=== PATIENT | male | born 1990 | race African-American/Black ===

== ENCOUNTER 2017-04-21 09:31 | Emergency (ER) | payer SELFPAY ==
[2017-04-21 09:37] VITALS: BP 131/68
--- NOTE | 2017-04-21 12:01 | ER Document Report ---
ED ENT - General Chief Complaint: Ear Pain Stated Complaint: RIGHT EAR CONCERN Time Seen by Provider: 04/21/17 10:29 Notes: Is a 27-year-old male who presents emergency department complaining of right ear pain since Friday. Patient states that it is a sharp pain localized to the right ear with decreased hearing in the right ear. He denies any headaches , visual acuity changes, sinus pressure, nasal drainage, sore throat, cough, fever, chills. h/o OM TRAVEL OUTSIDE OF THE [place] IN LAST 30 DAYS: No - Related Data Allergies/Adverse Reactions: aspirin Allergy (Verified 04/21/17 09:35) Past Medical History - Social History Smoking Status: Never Smoker Chew tobacco use (# tins/day): No Frequency of alcohol use: None Drug Abuse: None Family History: Reviewed & Not Pertinent Patient has suicidal ideation: No Patient has homicidal ideation: No Renal/ Medical History: Denies: Hx Peritoneal Dialysis Surgical Hx: Negative - Immunizations Hx Diphtheria, Pertussis, Tetanus Vaccination: Yes Review of Systems - Review of Systems Constitutional: No symptoms reported EENT: See HPI, Ear pain. denies: Ear discharge Cardiovascular: No symptoms reported Respiratory: No symptoms reported -: Yes All other systems reviewed and negative Physical Exam - Vital signs Vitals: Temp Pulse Resp BP Pulse Ox 97.8 F 51 L 16 131/68 H 100 04/21/17 09:36 04/21/17 09:36 04/21/17 09:36 04/21/17 09:36 04/21/17 09:36 - HEENT Head: Normocephalic, Atraumatic Eyes: Normal Conjunctiva: Normal Extraocular movements intact: Yes Eyelashes: Normal Pupils: PERRL Ears: Normal External canal: Cerumen impaction Tympanic membrane: Serous effusion - right, after ears irrigated Sinus: Normal. No: Swelling, Tenderness Nasal: Normal. No: Purulent discharge, Swelling, Clear rhinorrhea Mouth/Lips: Normal. No: Dental fracture Mucous membranes: Normal Pharynx: Normal. No: Peritonsillar abscess, Retropharyngeal abscess, Potential airway comprom. Neck: Normal - Respiratory Respiratory status: No respiratory distress Chest status: Nontender Breath sounds: Normal Chest palpation: Normal - Cardiovascular Rhythm: Regular Heart sounds: Normal auscultation Pulses: Normal: Radial Normal capillary refill: Yes - Skin Skin Temperature: Warm Skin Moisture: Dry Skin Color: Normal Skin Turgor: Elastic Course - Re-evaluation Re-evalutation: 04/21/17 11:58 Patient is a 27-year-old male presents with right ear pain as a sharp pain. Patient states this is consistent with his previous ear infections in the past. After ears were irrigated and removal of cerumen, bilateral TMs were evaluated. Evidence of otitis media of the right ear. Discharge home on p.o. antibiotics and follow-up with primary care - Vital Signs Vital signs: Temp Pulse Resp BP Pulse Ox 97.8 F 51 L 16 131/68 H 100 04/21/17 09:36 04/21/17 09:36 04/21/17 09:36 04/21/17 09:36 04/21/17 09:36 Discharge - Discharge Clinical Impression: Otitis media Condition: Good Disposition: HOME, SELF-CARE Instructions: Serous Otitis Media ([facility]) Prescriptions: Amoxicillin Trihydrate [Amoxil 875 mg Tablet] 1 tab PO BID 7 Days Forms: Return to Work Referrals: [facility] [NO LOCAL MD] - Follow up as needed [facility] [Provider Group] - Follow up as needed
== END 2017-04-21 12:46 | disposition home or self-care (01) ==
LOC: ER 09:31
DX: H66.90 Otitis media, unspecified, unspecified ear (principal); H92.01 Otalgia, right ear; Z88.6 Allergy status to analgesic agent
CPT/HCPCS: 99282

== ENCOUNTER 2018-06-06 18:13 | Emergency (ER) | payer SELFPAY ==
[2018-06-06 18:21] VITALS: BP 120/63
--- NOTE | 2018-06-06 19:06 | ER Document Report ---
ED General - General Chief Complaint: Finger Injury Stated Complaint: FINGER INJURY Time Seen by Provider: 06/06/18 19:06 Mode of Arrival: Ambulatory Information source: Patient TRAVEL OUTSIDE OF THE [place] IN LAST 30 DAYS: No - HPI Notes: Patient is a 28-year-old male presents to the emergency department with report that yesterday he caught his hand in a door and injured his right third and fourth fingers with mild bleeding. Patient's tetanus is up-to-date. He denies any other musculoskeletal complaint or injury. He reports no numbness or paresthesia. He denies any wrist pain or redness or swelling or fever or chills. No concern for foreign body. - Related Data Allergies/Adverse Reactions: aspirin Allergy (Verified 06/06/18 18:14) Past Medical History - General Information source: Patient - Social History Smoking Status: Never Smoker Frequency of alcohol use: None Drug Abuse: None Lives with: Friend Family History: Reviewed & Not Pertinent Renal/ Medical History: Denies: Hx Peritoneal Dialysis - Immunizations Hx Diphtheria, Pertussis, Tetanus Vaccination: Yes Review of Systems - Review of Systems -: Yes All other systems reviewed and negative Physical Exam - Vital signs Vitals: Temp Pulse Resp BP Pulse Ox 98.4 F 60 16 120/63 100 06/06/18 18:19 06/06/18 18:19 06/06/18 18:19 06/06/18 18:19 06/06/18 18:19 - Notes Notes: Physical exam is nonfocal with exception of the right upper extremity with the patient has pain and mild swelling with old lacerations from yesterday to the right third and fourth fingers. No nailbed injury. The patient has adequate flexion and extension. There is good distal capillary refill. There is no evidence for infection or foreign body. The lacerations are very superficial and there is no exposed bone or tendon or nerve. No proximal erythema or adenopathy noted. Rest of hand and wrist are nontender. Course - Re-evaluation Re-evalutation: X-ray as interpreted by me showed no evidence for acute fracture. Wound areas were cleaned and antibiotic ointment and a splint was applied. 06/06/18 20:07 06/06/18 20:09 No evidence for fracture or neurovascular compromise or other acute injury. - Vital Signs Vital signs: Temp Pulse Resp BP Pulse Ox 98.4 F 60 16 120/63 100 06/06/18 18:19 06/06/18 18:19 06/06/18 18:19 06/06/18 18:19 06/06/18 18:19 Discharge - Discharge Clinical Impression: Finger laceration Qualifiers: Encounter type: initial encounter Finger: index finger Damage to nail status: without damage Foreign body presence: without foreign body Laterality: right Qualified Code(s): S61.210A - Laceration without foreign body of right index finger without damage to nail, initial encounter Finger sprain Qualifiers: Encounter type: initial encounter Finger: middle finger Sprain of finger site: interphalangeal joint Laterality: right Qualified Code(s): S63.632A - Sprain of interphalangeal joint of right middle finger, initial encounter Condition: Stable Disposition: HOME, SELF-CARE Instructions: Antibiotic Ointment Protection ([facility]), Laceration Care ([facility]), Prophylactic Antibiotic ([facility]) Additional Instructions: Keep wound clean and dry. Return to the emergency department in case of fever or significant swelling or redness. Apply antibiotic ointment to the wound regularly. Prescriptions: Ibuprofen [Ibu] 800 mg PO Q8HP PRN #30 tablet PRN Reason: Cephalexin Monohydrate [Keflex 500 mg Capsule] 500 mg PO Q6H 7 Days capsule Forms: Return to Work
[2018-06-06] MEDS ORDERED: IBUPROFEN 800 MG TABLET PO ONE (19:18)
--- NOTE | 2018-06-06 20:15 | RADIOLOGY REPORT (SQ) ---
EXAM DESCRIPTION: HAND RIGHT 2 VIEWS COMPLETED DATE/TIME: 06/06/2018 7:17 pm REASON FOR STUDY: finger injury . Slammed 3rd and 4th digits in the car door yesterday morning. COMPARISON: None. EXAM PARAMETERS: NUMBER OF VIEWS: Three views. TECHNIQUE: AP, lateral and oblique radiographic images acquired of the right hand. LIMITATIONS: None. FINDINGS: MINERALIZATION: Normal. BONES: There is a small vertical linear lucency at the radial side at the tuft of the 3rd distal phal anx, may represent a nondisplaced fracture. SOFT TISSUES: No significant soft tissue swelling. No radiopaque foreign body. IMPRESSION: Small linear lucency at the tuft of the 3rd distal phalanx, may represent a nondisplaced fracture. TECHNICAL DOCUMENTATION: JOB ID: [id number] [employer]- All Rights Reserved Reading location - IP/workstation name: [email or web address]
== END 2018-06-06 20:25 | disposition home or self-care (01) ==
LOC: ER 18:13
DX: S61.210A Laceration without foreign body of right index finger without damage to nail, initial encounter (principal); S61.212A Laceration without foreign body of right middle finger without damage to nail, initial encounter; S63.632A Sprain of interphalangeal joint of right middle finger, initial encounter; W23.0XXA Caught, crushed, jammed, or pinched between moving objects, initial encounter; Z88.6 Allergy status to analgesic agent
CPT/HCPCS: 99283

== ENCOUNTER 2018-06-22 18:29 | Emergency (ER) | payer SELFPAY ==
[2018-06-22 19:13] VITALS: BP 124/68
--- NOTE | 2018-06-22 19:13 | ER Document Report ---
HPI - HPI Patient complains to provider of: Dysuria and penile discharge Onset: Yesterday Onset/Duration: Persistent Pain Level: 4 Context: 28-year-old male that had intercourse with a female without a condom yesterday he has penile discharge and dysuria. No scrotal swelling or testicular pain or swelling. He is circumcised. No pelvic pain. Patient denies any penile lesions or rash to the scrotum. Associated Symptoms: None Exacerbated by: Other - Urination Relieved by: Denies - ROS ROS below otherwise negative: Yes Systems Reviewed and Negative: Yes All other systems reviewed and negative Past Medical History - General Information source: Patient - Social History Smoking Status: Current Every Day Smoker Lives with: Family Family History: Reviewed & Not Pertinent - Medical History Medical History: Negative Pulmonary Medical History: Reports: Hx Asthma Renal/ Medical History: Denies: Hx Peritoneal Dialysis Surgical Hx: Negative - Immunizations Hx Diphtheria, Pertussis, Tetanus Vaccination: Yes Vertical Provider Document - CONSTITUTIONAL Agree With Documented VS: Yes - INFECTION CONTROL TRAVEL OUTSIDE OF THE [place] IN LAST 30 DAYS: No - GI/ABDOMEN Gastrointestinal: Abdomen Soft, Abdomen Non-Tender - NEURO Level of Consciousness: Awake - DERM Integumentary: No Rash Course - Vital Signs Vital signs: Temp Pulse Resp BP Pulse Ox 98.4 F 58 L 20 124/68 100 06/22/18 19:07 06/22/18 19:07 06/22/18 19:07 06/22/18 19:07 06/22/18 19:07 Discharge - Discharge Clinical Impression: Dysuria, Urethral discharge Condition: Good Disposition: HOME, SELF-CARE Instructions: Rocephin ([facility]), Azithromycin ([facility]), Gonorrhea ([facility]), Chlamydia ( [facility]), Urethritis ([facility]) Additional Instructions: Call back in 3 hours for the STD culture results and ask for Justine. [phone] If the cultures are positive the female partner will need to be treated Return to the emergency room any concerns Did not have intercourse for 2 weeks
[2018-06-22] MEDS ORDERED: AZITHROMYCIN 250 MG TABLET PO ONE (19:22)
[2018-06-22] MEDS ORDERED: CEFTRIAXONE INJ 250 MG VIAL IM ONE (19:22)
[2018-06-22 21:11] LABS: CHLAM PCR DETECTED (NOT DETECT); GON PCR NOT DETECTED (NOT DETECT)
== END 2018-06-22 20:00 | disposition home or self-care (01) ==
LOC: ER 18:29
DX: R30.0 Dysuria (principal); R36.9 Urethral discharge, unspecified; F17.200 Nicotine dependence, unspecified, uncomplicated
CPT/HCPCS: 99283; 96372; 87491; 87591; J0696

== ENCOUNTER 2018-10-04 16:00 | Emergency (ER) | payer SELFPAY ==
[2018-10-04 16:07] VITALS: BP 136/70
[2018-10-04] MEDS ORDERED: METHYLPREDNISOLONE INJ 125 MG/2 ML SDV IM ONE (17:07)
[2018-10-04] MEDS ORDERED: IPRATROPIUM/ALBUTEROL 0.5-2.5 MG/3 ML AMPUL NEB ONE (17:07)
--- NOTE | 2018-10-04 17:15 | ER Document Report ---
HPI - HPI Pain Level: 3 Notes: Patient is a 28-year-old male with a history of asthma who presents to the ED complaining of an acute asthma exacerbation that started this afternoon. Patient states that he has been having nasal congestion and discharge as well as a dry nonproductive cough over the last 3-4 days. Patient states he does not have any inhalers at home, but has not used inhalers in the past. Pt states that this is not a severe asthma exacerbation. He is eating and drinking without difficulty. He is urinating normally and having normal bowel movements. No other concerns or complaints. He has never needed to be intubated or admitted for asthma in the past. Denies any headache, fever, neck pain, sore throat, chest pain, palpitations, syncope, shortness of breath, wheeze, dyspnea, abdominal pain, nausea/vomiting/diarrhea, urinary retention, dysuria, hematuria, or rash. Denies any prolonged immobilization, distance travel, recent surgery/trauma, personal cancer history, hormone use, smoking, or previous DVT/PE. - ROS Systems Reviewed and Negative: Yes All other systems reviewed and negative Past Medical History - Social History Smoking Status: Never Smoker Family History: Reviewed & Not Pertinent Pulmonary Medical History: Reports: Hx Asthma Renal/ Medical History: Denies: Hx Peritoneal Dialysis - Immunizations Hx Diphtheria, Pertussis, Tetanus Vaccination: Yes Vertical Provider Document - CONSTITUTIONAL Agree With Documented VS: Yes Notes: PHYSICAL EXAMINATION: GENERAL: Well-appearing, well-nourished and in no acute distress. A&Ox4. Answers questions appropriately. HEAD: Atraumatic, normocephalic. EYES: Pupils equal round and reactive to light, extraocular movements intact, sclera anicteric, conjunctiva are normal. ENT: Nares patent and without discharge. oropharynx clear without exudates. No tonsilar hypertrophy or erythema. Moist mucous membranes. NECK: Normal range of motion, supple without lymphadenopathy LUNGS: Scant wheezing b/l. No rales. HEART: Regular rate and rhythm without murmurs, rubs, gallops. ABDOMEN: Soft, nontender, nondistended abdomen. No guarding, no rebound. No masses appreciated. Normal bowel sounds present. No CVA tenderness bilaterally. Musculoskeletal: FROM to passive/active. Strength 5+/5. Shyann neg. No asymmetry to LE's. Extremities: No cyanosis, clubbing, or edema b/l. Peripheral pulses 2+. Capillary refill less than 3 seconds. NEUROLOGICAL: Normal speech, normal gait. PSYCH: Normal mood, normal affect. SKIN: Warm, Dry, normal turgor, no rashes or lesions noted. - INFECTION CONTROL TRAVEL OUTSIDE OF THE [place] IN LAST 30 DAYS: No Course - Re-evaluation Re-evalutation: 10/04/18 18:26 Patient is an afebrile, well-hydrated, 28-year-old male who presents to the ED with an acute asthma exacerbation, mild. Vitals are acceptable without any significant tachycardia, tachypnea, or hypoxia. PE is otherwise unremarkable. Patient is nontoxic-appearing and is tolerating p.o. without any difficulties. Pt was given solumedrol and duoneb. CXR negative. Pt has had resolution of symptoms and lungs are now clear b/l. PERC negative with low risk factors. Patient does not have any chest pain, dyspnea, or shortness of breath. Patient' s presentation and symptomatology creates low suspicion for ACS, PE, pneumothorax, pericarditis, dissection, respiratory compromise, severe dehydration, sepsis, meningitis, or other systemic emergent condition at this time. Patient is aware that his condition can change from initial presentation and he needs to monitor symptoms closely and seek medical attention for any acute changes. Pt is feeling better and would like to go home. Rx for albuterol and steroid taper. Recommend conservative measures for symptoms. Recheck with your PCM in 3-5 days. Return to the ED with any worsening/ concerning symptoms otherwise as reviewed in discharge. Patient is in agreement. - Vital Signs Vital signs: Temp Pulse Resp BP Pulse Ox 98.4 F 97 16 136/70 H 95 10/04/18 16:06 10/04/18 16:06 10/04/18 16:06 10/04/18 16:06 10/04/18 16:06 Discharge - Discharge Clinical Impression: Acute asthma flare Qualifiers: Asthma severity: mild Asthma persistence: intermittent Qualified Code(s): J45.21 - Mild intermittent asthma with (acute) exacerbation Condition: Stable Disposition: HOME, SELF-CARE Instructions: Asthma ([facility]) Additional Instructions: Maintain adequate fluid intake Take meds/use inhaler as directed tylenol/ibuprofen as needed over the counter cold medication as needed for symptoms Humidified air may help Wash your hands regularly Wear a mask when coughing F/u: with your PCM in 3-5 days for a recheck Return to the ED with any fever, worsening pain, chest pain, palpitations, syncope, worsening APARICIO, neck pain/stiffness, shortness of breath, wheezing, drooling, trouble swallowing/breathing, abdominal pain, n/v/d, rash, or worsening/concerning symptoms otherwise. Prescriptions: Albuterol Sulfate [Proair HFA Inhalation Aerosol 8.5 gm MDI] 2 puff IH Q4H PRN # 1 mdi PRN Reason: Prednisone [Deltasone 10 mg Tablet] 10 mg PO DAILY #18 tablet Forms: Elevated Blood Pressure, Return to Work Referrals: PEEWEE VASQUEZ MD [ACTIVE STAFF] - Follow up as needed
--- NOTE | 2018-10-04 17:43 | RADIOLOGY REPORT (SQ) ---
EXAM DESCRIPTION: CHEST 2 VIEWS COMPLETED DATE/TIME: 10/04/2018 5:36 pm REASON FOR STUDY: cough COMPARISON: None. EXAM PARAMETERS: NUMBER OF VIEWS: two views TECHNIQUE: Digital Frontal and Lateral radiographic views of the chest acquired. RADIATION DOSE: NA LIMITATIONS: none FINDINGS: LUNGS AND PLEURA: No opacities, masses or pneumothorax. No pleural effusion. MEDIASTINUM AND HILAR STRUCTURES: No masses or contour abnormalities. HEART AND VASCULAR STRUCTURES: Heart normal size. No evidence for failure. BONES: No acute findings. HARDWARE: None in the chest. OTHER: No other significant finding. IMPRESSION: NO ACUTE RADIOGRAPHIC FINDING IN THE CHEST. TECHNICAL DOCUMENTATION: JOB ID: [id number] [employer]- All Rights Reserved Reading location - IP/workstation name: [email or web address]
== END 2018-10-04 18:31 | disposition home or self-care (01) ==
LOC: ER 16:00
DX: J45.21 Mild intermittent asthma with (acute) exacerbation (principal); R09.81 Nasal congestion; R09.89 Other specified symptoms and signs involving the circulatory and respiratory systems; R05 Cough
CPT/HCPCS: 94640; 99284; 96372; 71046; J2930; J7620

== ENCOUNTER 2018-11-11 10:15 | Emergency (ER) | payer SELFPAY ==
[2018-11-11 10:24] VITALS: BP 123/76
[2018-11-11] MEDS ORDERED: LIDOCAINE 1% INJ-PF (10 MG/ML) 30 ML SDV INJ ONE (10:34)
[2018-11-11] MEDS ORDERED: CEFTRIAXONE INJ 250 MG VIAL IM ONE (10:34)
[2018-11-11] MEDS ORDERED: AZITHROMYCIN 250 MG TABLET PO ONE (10:34)
[2018-11-11] MEDS ORDERED: METRONIDAZOLE 500 MG TABLET PO ONE (10:34)
[2018-11-11 11:16] LABS: APPEARANCE,URINE CLEAR; BILIRUBIN,URINE NEGATIVE (NEGATIVE); COLOR,URINE YELLOW; GLUCOSE, URINE NEGATIVE (NEGATIVE); KETONES,URINE NEGATIVE (NEGATIVE); LEUKOCYTE ESTERASE,URINE NEGATIVE (NEGATIVE); NITRITE,URINE NEGATIVE (NEGATIVE); PROTEIN,URINE NEGATIVE (NEGATIVE); URINE SPECIFIC GRAVITY 1.028
--- NOTE | 2018-11-11 11:23 | ER Document Report ---
HPI - HPI Patient complains to provider of: Penile discharge Time Seen by Provider: 11/11/18 10:28 Onset: Last week Onset/Duration: Persistent Quality of pain: Burning Pain Level: 5 Context: She presents complaining of penile discharge and dysuria symptoms for the past 5 days. Patient denies any fever, testicular pain or difficulty with erection. Associated Symptoms: denies: Fever Exacerbated by: Denies Relieved by: Denies Similar symptoms previously: Yes Recently seen / treated by doctor: No - ROS ROS below otherwise negative: Yes Systems Reviewed and Negative: Yes All other systems reviewed and negative - CONSTITUTIONAL Constitutional: DENIES: Fever, Chills - GASTROINTESTINAL Gastrointestinal: DENIES: Abdominal Pain, Black / Bloody Stools - URINARY Urinary: REPORTS: Dysuria. DENIES: Urgency, Frequency - MUSCULOSKELETAL Musculoskeletal: DENIES: Extremity pain - DERM Skin Color: Normal Skin Problems: None Past Medical History - General Information source: Patient - Social History Smoking Status: Never Smoker Chew tobacco use (# tins/day): No Frequency of alcohol use: None Drug Abuse: None Occupation: Foodservice Family History: Reviewed & Not Pertinent Patient has suicidal ideation: No Patient has homicidal ideation: No Pulmonary Medical History: Reports: Hx Asthma Renal/ Medical History: Denies: Hx Peritoneal Dialysis Surgical Hx: Negative - Immunizations Hx Diphtheria, Pertussis, Tetanus Vaccination: Yes Vertical Provider Document - CONSTITUTIONAL Agree With Documented VS: Yes Exam Limitations: No Limitations General Appearance: WD/WN, No Apparent Distress - INFECTION CONTROL TRAVEL OUTSIDE OF THE [place] IN LAST 30 DAYS: No - HEENT HEENT: Atraumatic, Normocephalic - NECK Neck: Normal Inspection, Supple - RESPIRATORY Respiratory: Breath Sounds Normal, No Respiratory Distress - CARDIOVASCULAR Cardiovascular: Regular Rate, Regular Rhythm - GI/ABDOMEN Gastrointestinal: Abdomen Soft, Abdomen Non-Tender, No Organomegaly - REPRODUCTIVE Male Genitalia: Abnormal Inspection - Clear discharge from urethra, mild inguinal lymphadenopathy. No scrotal tenderness or swelling. Normal cremasteric reflex. MARJAN Whitmore as standby - BACK Back: Normal Inspection. negative: CVA Tenderness-Right, CVA Tenderness-Left - MUSCULOSKELETAL/EXTREMETIES Musculoskeletal/Extremeties: MAEW - NEURO Level of Consciousness: Awake, Alert, Appropriate Motor/Sensory: No Motor Deficit - DERM Integumentary: Warm, Dry, No Rash Course - Vital Signs Vital signs: Temp Pulse Resp BP Pulse Ox 98.2 F 55 L 16 123/76 99 11/11/18 10:22 11/11/18 10:22 11/11/18 10:22 11/11/18 10:22 11/11/18 10:22 - Laboratory Laboratory results interpreted by me: 11/11/18 10:49 Urine Urobilinogen 2.0 H 11/11/18 11:25 Labs- Entire Visit 11/11/18 10:49 Urine Color YELLOW Urine Appearance CLEAR Urine pH 7.0 Ur Specific [place] 1.028 Urine Protein NEGATIVE Urine Glucose (UA) NEGATIVE Urine Ketones NEGATIVE Urine Blood NEGATIVE Urine Nitrite NEGATIVE Urine Bilirubin NEGATIVE Urine Urobilinogen 2.0 H Ur Leukocyte Esterase NEGATIVE Urine WBC (Auto) 6 Urine RBC (Auto) 0 Squamous Epi Cells Auto <1 Urine Mucus (Auto) OCC Urine Ascorbic Acid NEGATIVE Discharge - Discharge Clinical Impression: Penile discharge, Concern about STD in male without diagnosis, Urethritis Condition: Stable Disposition: HOME, SELF-CARE Instructions: Azithromycin ([facility]), Metronidazole ([facility]), Rocephin ([facility]), Urethritis ([facility]) Additional Instructions: Return immediately for any new or worsening symptoms Followup with your primary care provider, call tomorrow to make a followup appointment Safe sex practices Cultures are pending, we will call if you need any different treatment Referrals: [facility] [NO LOCAL MD] - Follow up as needed
[2018-11-11] MEDS ORDERED: PROMETHAZINE HCL 25 MG TABLET PO ONE (12:14)
[2018-11-11 12:43] LABS: CHLAM PCR DETECTED (NOT DETECT); GON PCR NOT DETECTED (NOT DETECT)
== END 2018-11-11 12:35 | disposition home or self-care (01) ==
LOC: ER 10:15
DX: N34.2 Other urethritis (principal); R36.9 Urethral discharge, unspecified; R30.0 Dysuria; R59.0 Localized enlarged lymph nodes; J45.909 Unspecified asthma, uncomplicated; Z20.2 Contact with and (suspected) exposure to infections with a predominantly sexual mode of transmission
CPT/HCPCS: 99283; 96372; 81001; 87491; 87591; J3490; J0696

== ENCOUNTER 2018-12-05 17:36 | Emergency (ER) | payer SELFPAY ==
[2018-12-05] MEDS ORDERED: AZITHROMYCIN 250 MG TABLET PO ONE (19:01)
[2018-12-05] MEDS ORDERED: CEFTRIAXONE INJ 250 MG VIAL IM ONE (19:01)
--- NOTE | 2018-12-05 19:03 | ER Document Report ---
ED General - General Chief Complaint: Urinary Problem Stated Complaint: BLOOD IN URINE Time Seen by Provider: 12/05/18 19:00 Primary Care Provider: VIOLET MCBRIDE MD [ACTIVE STAFF] - Follow up as needed Mode of Arrival: Ambulatory Information source: Patient Notes: 28-year-old male presents emergency department with complaints of dysuria, penile discharge for the last 5 days. Patient states that he is had sexually transmitted diseases in the past and feels like this is similar to previous. Patient states that he was just treated for chlamydia a month ago. Patient is requesting to be treated for sexually transmitted diseases again. He denies any abdominal pain, testicular pain, nausea, vomiting, diarrhea, constipation, fever, chills. TRAVEL OUTSIDE OF THE [place] IN LAST 30 DAYS: No - HPI Onset: Last week Onset/Duration: Gradual Quality of pain: Burning Severity: Mild Associated symptoms: None Exacerbated by: Denies Relieved by: Denies Similar symptoms previously: Yes Recently seen / treated by doctor: No - Related Data Allergies/Adverse Reactions: aspirin Allergy (Verified 12/05/18 17:38) Past Medical History - General Information source: Patient - Social History Smoking Status: Never Smoker Family History: Reviewed & Not Pertinent Pulmonary Medical History: Reports: Hx Asthma Renal/ Medical History: Denies: Hx Peritoneal Dialysis - Immunizations Hx Diphtheria, Pertussis, Tetanus Vaccination: Yes Review of Systems - Review of Systems Constitutional: No symptoms reported EENT: No symptoms reported Cardiovascular: No symptoms reported Respiratory: No symptoms reported Gastrointestinal: No symptoms reported Genitourinary: Dysuria Musculoskeletal: No symptoms reported Skin: No symptoms reported Hematologic/Lymphatic: No symptoms reported Neurological/Psychological: No symptoms reported -: Yes All other systems reviewed and negative Physical Exam - Vital signs Vitals: Temp Pulse Resp BP Pulse Ox 98.8 F 66 14 141/67 H 98 12/05/18 18:08 12/05/18 18:08 12/05/18 18:08 12/05/18 18:08 12/05/18 18:08 - Notes Notes: PHYSICAL EXAMINATION: GENERAL: Well-appearing, well-nourished and in no acute distress. HEAD: Atraumatic, normocephalic. EYES: Pupils equal round and reactive to light, extraocular movements intact, sclera anicteric, conjunctiva are normal. ENT: Nares patent, oropharynx clear without exudates. Moist mucous membranes. NECK: Normal range of motion, supple without lymphadenopathy LUNGS: Breath sounds clear to auscultation bilaterally and equal. No wheezes rales or rhonchi. HEART: Regular rate and rhythm without murmurs ABDOMEN: Soft, nontender, nondistended abdomen. No guarding, no rebound. No testicular tenderness to palpation. No penile discharge appreciated. Musculoskeletal: Normal range of motion, no pitting or edema. No cyanosis. NEUROLOGICAL: Cranial nerves grossly intact. Normal speech, normal gait. Normal sensory, motor exams PSYCH: Normal mood, normal affect. SKIN: Warm, Dry, normal turgor, no rashes or lesions noted. Course - Re-evaluation Re-evalutation: 12/05/18 19:19 Patient treated with Rocephin and azithromycin in the emergency department. Patient told to have his sexual partner come in and to be treated as well. 12/05/18 19:40 - Vital Signs Vital signs: Temp Pulse Resp BP Pulse Ox 98.8 F 66 14 141/67 H 98 12/05/18 18:08 12/05/18 18:08 12/05/18 18:08 12/05/18 18:08 12/05/18 18:08 - Laboratory Laboratory results interpreted by me: 12/05/18 18:38 Urine Urobilinogen 2.0 H Discharge - Discharge Clinical Impression: Urethritis Condition: Good Disposition: HOME, SELF-CARE Instructions: Urethritis ([facility]) Referrals: VIOLET MCBRIDE MD [ACTIVE STAFF] - Follow up as needed
[2018-12-05] MEDS ORDERED: LIDOCAINE 1% INJ-PF (10 MG/ML) 30 ML SDV ONE (19:14)
[2018-12-05] MEDS ORDERED: AZITHROMYCIN 250 MG TABLET ONE (19:25)
[2018-12-05 19:29] LABS: APPEARANCE,URINE CLEAR; BILIRUBIN,URINE NEGATIVE (NEGATIVE); COLOR,URINE YELLOW; GLUCOSE, URINE NEGATIVE (NEGATIVE); KETONES,URINE NEGATIVE (NEGATIVE); LEUKOCYTE ESTERASE,URINE NEGATIVE (NEGATIVE); NITRITE,URINE NEGATIVE (NEGATIVE); PROTEIN,URINE NEGATIVE (NEGATIVE); URINE SPECIFIC GRAVITY 1.011
[2018-12-05 19:43] VITALS: BP 125/73
== END 2018-12-05 19:44 | disposition home or self-care (01) ==
LOC: ER 17:36
DX: N34.2 Other urethritis (principal); R31.9 Hematuria, unspecified; R30.0 Dysuria; Z88.6 Allergy status to analgesic agent
CPT/HCPCS: 99283; 96372; 81001; J3490; J0696

== ENCOUNTER 2019-06-14 16:52 | Emergency (ER) | payer SELFPAY ==
--- NOTE | 2019-06-14 18:51 | RADIOLOGY REPORT (SQ) ---
EXAM DESCRIPTION: KNEE RIGHT 4 VIEWS COMPLETED DATE/TIME: 06/14/2019 6:00 pm REASON FOR STUDY: increased pain, denies injury COMPARISON: None. NUMBER OF VIEWS: Four views. TECHNIQUE: AP, lateral, and both oblique radiographic images acquired of the right knee. LIMITATIONS: None. FINDINGS: MINERALIZATION: Normal. BONES: No acute fracture or dislocation. No worrisome bone lesions. JOINT: No effusion. SOFT TISSUES: No soft tissue swelling. No radio-opaque foreign body. OTHER: No other significant finding. IMPRESSION: NEGATIVE STUDY OF THE RIGHT KNEE. NO RADIOGRAPHIC EVIDENCE OF ACUTE INJURY. TECHNICAL DOCUMENTATION: JOB ID: [id number] [employer]- All Rights Reserved Reading location - IP/workstation name: [email or web address]
--- NOTE | 2019-06-14 20:19 | ER Document Report ---
HPI - HPI Time Seen by Provider: 06/14/19 20:03 Pain Level: 4 Context: Patient is a 29-year-old male with a history of asthma who presents to the emergency department with a chief complaint of right knee pain. Patient states he noticed his right knee started to bother him yesterday. Patient states he works 16+ hours per day and is standing on his feet the whole time. Patient states he does not wear supportive shoes. Patient states he does sweat profusely throughout the day and it drinks soda. Patient states last night he had a 15-minute episode of where his leg started to cramp on him. Patient states he knows he needs to eat and drink more frequently as he knows he is not taking care of himself. Patient denies injury or fall on the right leg or right knee. Patient states he has not had any leg cramping today. Patient denies nausea, vomiting, fever or diarrhea. Patient denies any other complaints. Past Medical History - General Information source: Patient - Social History Smoking Status: Never Smoker Frequency of alcohol use: Social Drug Abuse: Marijuana Lives with: Spouse/Significant other Family History: Reviewed & Not Pertinent - Past Medical History Cardiac Medical History: Reports: None Pulmonary Medical History: Reports: Hx Asthma EENT Medical History: Reports: None Neurological Medical History: Reports: None Endocrine Medical History: Reports: None Renal/ Medical History: Reports: None. Denies: Hx Peritoneal Dialysis Malignancy Medical History: Reports None GI Medical History: Reports: None Musculoskeletal Medical History: Reports None Skin Medical History: Reports None Psychiatric Medical History: Reports: None Traumatic Medical History: Reports: None Infectious Medical History: Reports: None Surgical Hx: Negative - Immunizations Hx Diphtheria, Pertussis, Tetanus Vaccination: Yes Vertical Provider Document - CONSTITUTIONAL Agree With Documented VS: Yes Exam Limitations: No Limitations General Appearance: No Apparent Distress - INFECTION CONTROL TRAVEL OUTSIDE OF THE [place] IN LAST 30 DAYS: No - HEENT HEENT: Atraumatic, Normocephalic, PERRLA - NECK Neck: Normal Inspection - RESPIRATORY Respiratory: Breath Sounds Normal, No Respiratory Distress - CARDIOVASCULAR Cardiovascular: Regular Rate, Regular Rhythm - GI/ABDOMEN Gastrointestinal: Abdomen Soft, Abdomen Non-Tender, Normal Bowel Sounds - MUSCULOSKELETAL/EXTREMETIES Notes: There is no swelling, ecchymosis, edema or erythema noted to the right knee. Patient does report mild pain when palpating the patella. There is no instability noted to the patella. Patient has a strong popliteal pulse. There is no calf swelling or redness. - NEURO Level of Consciousness: Awake, Alert, Appropriate - DERM Integumentary: Warm, Dry Course - Re-evaluation Re-evalutation: 06/14/19 20:17 Upon evaluation of the patient he was called multiple times within the past hour for room. Patient was found present in the lobby and states he had walked to the cafeteria to eat. Patient is ambulating with a steady gait and is in no acute distress. Patient states today he has not had any leg cramping. Patient states he that he is just overdid it as he works 16+ hours a day and is on his feet. Patient denies a specific injury to his knee or leg. I did inform the patient to rest over the next few days, hydrate, eat as he reports he does not eat much food throughout the day, elevate the right leg and ice as needed. I did inform the patient to take NSAIDs such as ibuprofen for his discomfort. Patient given strict return precautions. I did offer ibuprofen/Motrin prior to discharge patient states he will take a dose. - Vital Signs Vital signs: Temp Pulse Resp BP Pulse Ox 98.2 F 62 18 155/73 H 98 06/14/19 17:15 06/14/19 17:15 06/14/19 17:15 06/14/19 17:15 06/14/19 17:15 - Diagnostic Test Radiology reviewed: Reports reviewed Radiology results interpreted by me: 06/14/19 20:23 Knee X-Ray 06/14/19 17:48 IMPRESSION: NEGATIVE STUDY OF THE RIGHT KNEE. NO RADIOGRAPHIC EVIDENCE OF ACUTE INJURY. Discharge - Discharge Clinical Impression: Leg cramps Knee pain Qualifiers: Chronicity: acute Laterality: right Qualified Code(s): M25.561 - Pain in right knee Condition: Stable Disposition: HOME, SELF-CARE Instructions: Ice & Elevation ([facility]) Additional Instructions: Today you were seen in the emergency department for knee pain. We did obtain an x-ray which was negative for any acute abnormality. There was no injury to the knee. Your symptoms could be related to standing for multiple hours per day as you do work 16 hours. Over the next few days please relax, hydrate, eat multiple meals throughout a day as you have reported that you do not eat appropriately, you may ice and elevate the right leg. Please return to the emergency department if you develop any significant swelling or redness around the knee, nausea vomiting or diarrhea, severe leg cramping or muscle cramping or any other concerning signs or symptoms. Take ibuprofen or Tylenol as needed for pain. Forms: Return to Work
[2019-06-14] MEDS ORDERED: IBUPROFEN 800 MG TABLET PO ONE (20:21)
[2019-06-14 20:46] VITALS: BP 134/77
== END 2019-06-14 20:47 | disposition home or self-care (01) ==
LOC: ER 16:52
DX: M25.561 Pain in right knee (principal); R25.2 Cramp and spasm; J45.909 Unspecified asthma, uncomplicated; R61 Generalized hyperhidrosis; F12.10 Cannabis abuse, uncomplicated

== ENCOUNTER 2019-08-11 12:56 | Emergency (ER) | payer SELFPAY ==
[2019-08-11] MEDS ORDERED: IPRATROPIUM/ALBUTEROL 0.5-2.5 MG/3 ML AMPUL NEB ONE ×2 (14:28→15:09)
[2019-08-11] MEDS ORDERED: DEXAMETHASONE SOD PHOS INJ 10 MG/1 ML VIAL IM ONE (14:29)
[2019-08-11] MEDS ORDERED: ALBUTEROL SULFATE HFA (90 MCG/PUFF) 8 GM MDI (1 MDI/ER DISP) IH ONE (14:30)
--- NOTE | 2019-08-11 14:30 | ER Document Report ---
HPI - HPI Time Seen by Provider: 08/11/19 14:02 Notes: Patient is a 29-year-old male presenting to the emergency department with cough, shortness of breath, congestion and diarrhea. Patient reports symptoms have been ongoing for approximately 3 days. He reports he is only having one episode of diarrhea per day. He does report a history of asthma and states this has been acting up. Patient has no medications at home including no inhalers for his asthma. Past Medical History - General Information source: Patient - Social History Smoking Status: Never Smoker Frequency of alcohol use: None Drug Abuse: None Family History: Reviewed & Not Pertinent Pulmonary Medical History: Reports: Hx Asthma Renal/ Medical History: Denies: Hx Peritoneal Dialysis Surgical Hx: Negative - Immunizations Hx Diphtheria, Pertussis, Tetanus Vaccination: Yes Vertical Provider Document - CONSTITUTIONAL Notes: PHYSICAL EXAMINATION: GENERAL: Well-appearing, well-nourished and in no acute distress. HEAD: Atraumatic, normocephalic. EYES: Pupils equal round extraocular movements intact, conjunctiva are normal. ENT: Nares patent with clear rhinorrhea. NECK: Normal range of motion LUNGS: No respiratory distress, expiratory wheezes noted bilaterally, no increased work of breathing. Musculoskeletal: Normal range of motion NEUROLOGICAL: Normal speech, normal gait. PSYCH: Normal mood, normal affect. SKIN: Warm, Dry, normal turgor, no rashes or lesions noted. - INFECTION CONTROL TRAVEL OUTSIDE OF THE [place] IN LAST 30 DAYS: No Course - Re-evaluation Re-evalutation: Patient given breathing treatments here in the emergency department which significantly helped with his wheezing. Patient will be discharged home in stable condition with an albuterol inhaler and hand. Patient will also be started on a course of prednisone. Patient understands ED return precautions. The patient's emergency department workup and current diagnosis were explained to the patient and or family. Follow-up instructions were provided. Medi cations if prescribed were discussed. Instructions for when to return to the emergency department including specific worrisome symptoms were discussed with the patient and/or family. Discharge - Discharge Clinical Impression: Viral upper respiratory illness Diarrhea Qualifiers: Diarrhea type: unspecified type Qualified Code(s): R19.7 - Diarrhea, unspecified Asthma exacerbation Qualifiers: Asthma severity: mild Asthma persistence: unspecified Qualified Code(s): J45.901 - Unspecified asthma with (acute) exacerbation Condition: Stable Disposition: HOME, SELF-CARE Instructions: Upper Respiratory Illness ([facility]) Additional Instructions: You were given a shot of Decadron here in the emergency department. This is a steroid. This will help open up your airways. Please use the inhaler as directed, you may take 2 puffs every 4 hours as needed for shortness of breath or wheezing. Drink plenty of fluids. Tylenol or ibuprofen for any pain or body aches. Return to the emergency department with any new or worsening symptoms. Forms: Return to Work Referrals: [facility] [Provider Group] - Follow up as needed
== END 2019-08-11 15:25 | disposition home or self-care (01) ==
LOC: ER 12:56
DX: J45.901 Unspecified asthma with (acute) exacerbation (principal); J06.9 Acute upper respiratory infection, unspecified; B97.89 Other viral agents as the cause of diseases classified elsewhere; R05 Cough; R06.02 Shortness of breath; R19.7 Diarrhea, unspecified
CPT/HCPCS: 94640 ×2; 99283; 96372; J1100; J3490; J7620

== ENCOUNTER 2019-09-24 16:02 | Emergency (ER) | payer SELFPAY ==
[2019-09-24 16:14] VITALS: BP 128/64
[2019-09-24] MEDS ORDERED: ACETAMINOPHEN 325 MG TABLET PO ONE (17:01)
[2019-09-24] MEDS ORDERED: PSEUDOEPHEDRINE HCL 30 MG TABLET PO ONE (17:01)
[2019-09-24] MEDS ORDERED: GUAIFENESIN 600 MG TABLET.SA PO ONE (17:01)
[2019-09-24] MEDS ORDERED: LORATADINE 10 MG TABLET PO ONE (17:01)
--- NOTE | 2019-09-24 17:01 | ER Document Report ---
ED Flu Like - General Chief Complaint: Cold Symptoms Stated Complaint: SORE THROAT/COUGH Time Seen by Provider: 09/24/19 16:53 Mode of Arrival: Ambulatory Information source: Patient Notes: 29-year-old male presented to ED for cough cold congestion runny nose. So you will need to put you off to nicole back to work tomorrow TRAVEL OUTSIDE OF THE [place] IN LAST 30 DAYS: No - HPI Onset: Other - For 5 days Timing/Duration: Intermittent, Persistent Quality of pain: Achy Severity: Moderate Pain Level: 3 Associated symptoms: Body/muscle aches, Productive cough, Rhinnorhea, Sinus pain/drainage, Sore throat. denies: Fever Similar symptoms previously: Yes Recently seen / treated by doctor: No - Related Data Allergies/Adverse Reactions: aspirin Allergy (Verified 09/24/19 16:52) Past Medical History - General Information source: Patient - Social History Smoking Status: Never Smoker Frequency of alcohol use: None Drug Abuse: Marijuana Occupation: [employer] Lives with: Family Family History: Reviewed & Not Pertinent Patient has suicidal ideation: No Patient has homicidal ideation: No - Past Medical History Cardiac Medical History: Reports: None Pulmonary Medical History: Reports: Hx Asthma EENT Medical History: Reports: None Neurological Medical History: Reports: None Endocrine Medical History: Reports: None Renal/ Medical History: Reports: None Malignancy Medical History: Reports None GI Medical History: Reports: None Musculoskeletal Medical History: Reports None Skin Medical History: Reports None Psychiatric Medical History: Reports: None Traumatic Medical History: Reports: None Infectious Medical History: Reports: None Surgical Hx: Negative Past Surgical History: Reports: None - Immunizations Immunizations up to date: Yes Hx Diphtheria, Pertussis, Tetanus Vaccination: Yes Physical Exam - Vital signs Vitals: Temp Pulse Resp BP Pulse Ox 98.4 F 70 20 128/64 H 100 09/24/19 16:12 09/24/19 16:12 09/24/19 16:12 09/24/19 16:12 09/24/19 16:12 Course - Re-evaluation Re-evalutation: 09/24/19 20:56 After performing a Medical Screening Examination, I estimate there is LOW risk for ACUTE CORONARY SYNDROME, RESPIRATORY FAILURE, SEPSIS OR MENINGITIS, thus I consider the discharge disposition reasonable. I have reevaluated this patient multiple times and no significant life threatening changes are noted. The patient and I have discussed the diagnosis and risks, and we agree with discharging home with close follow-up. We also discussed returning to the Emergency Department immediately if new or worsening symptoms occur. We have discussed the symptoms which are most concerning (e.g., changing or worsening pain, trouble swallowing or breathing, neck stiffness, fever) that necessitate immediate return. - Vital Signs Vital signs: Temp Pulse Resp BP Pulse Ox 98.4 F 70 20 128/64 H 100 09/24/19 16:12 09/24/19 16:12 09/24/19 16:12 09/24/19 16:12 09/24/19 16:12 Discharge - Discharge Clinical Impression: URI (upper respiratory infection) Qualifiers: URI type: unspecified viral URI Qualified Code(s): J06.9 - Acute upper respiratory infection, unspecified Condition: Stable Disposition: HOME, SELF-CARE Instructions: Family Physicians / Practices Additional Instructions: UPPER RESPIRATORY ILLNESS: You have a viral infection of the respiratory passages -- a "cold." This common infection causes nasal congestion, drainage, and often sore throat and cough. It is highly contagious. The disease usually lasts about 10 to 14 days. There is no "cure" for the viral infection -- it must run its course. If there is a complication, such as bacterial infection in the nose, sinuses, middle ear, or bronchial tubes, antibiotics may be required. The antibiotics won't affect the virus. Drink plenty of fluids. A humidifier may help. An expectorant medication or decongestant may make you more comfortable. Use acetaminophen or ibuprofen for fever or aches. See the doctor if fever persists over two days, if there is any significant worsening of your symptoms, or if you simply fail to improve as expected. You have been treated with Claritin 10 mg, Sudafed 30 mg, Mucinex 600 mg, and Tylenol 650 mg p.o. in the emergency room for a cough cold congestion. These are all [id number] medications you will have to ask the pharmacist for the Sudafed. Please ask him for the little red side effects. You can also use Flonase which is [id number]. You can use Chloraseptic spray for your sore throat. Salt and soda solution gargle may help with your sore throat also. COUGH-SUPPRESSANT & EXPECTORANT MEDICATION: You are to use a cough medication as needed for relief of symptoms. This medicine is a combination of an expectorant (to make the mucous thinner and more easily "coughed up") and a cough suppressant (to reduce the frequency of coughing). The cough-suppressant medicine is related to narcotics. You may experience mild nausea and sleepiness. Some patients who are very sensitive to narcotics may have stomach pain from this medicine. Taking the medicine with food reduces these side effects. Do not drive or work with machinery until you know how this medicine affects you. The expectorant should have no side effects. Iodine-containing expectorants (such as organidin) should not be taken by persons with active thyroid disease unless approved by your doctor. Call the doctor if you develop shortness of breath, hives, rash, itching, lightheadedness, or severe nausea and vomiting. USE OF ACETAMINOPHEN (Tylenol): Acetaminophen may be taken for pain relief or fever control. It's much safer than aspirin, offering a wider range of "safe" dosages. It is safe during . Some brand names are Tylenol, Panadol, Datril, Anacin 3, Tempra, and Liquiprin. Acetaminophen can be repeated every four hours. The following are maximum recommended dosages: >89 pounds or adults 650 mg to 900 mg Acetaminophen can be repeated every four hours. Maximum dose not to exceed 4000 mg a day. SMOKING: If you smoke, you should stop smoking. The tar and chemicals in cigarette smoke are harmful. Smoking has been shown to cause: emphysema chronic bronchitis lung cancer mouth and throat cancer stomach and pancreas cancer premature aging defects In addition, smoking increases ear and lung infections in children of smokers. Salt and soda solution 1 quart of water 1 tablespoon of salt 1 teaspoon of baking soda Mixed 3 ingredients together and boil for 1 minute Placed in a covered quart jar Use 1/2 ounce of cold solution to gargle 3 times a day FOLLOW-UP CARE: If you have been referred to a physician for follow-up care, call the physicians office for an appointment as you were instructed or within the next two days. If you experience worsening or a significant change in your symptoms, notify the physician immediately or return to the Emergency Department at any time for re-evaluation. Forms: Elevated Blood Pressure, Smoking Cessation Education, Return to Work
== END 2019-09-24 17:20 | disposition home or self-care (01) ==
LOC: ER 16:02
DX: J06.9 Acute upper respiratory infection, unspecified (principal); B97.89 Other viral agents as the cause of diseases classified elsewhere; J02.9 Acute pharyngitis, unspecified; R05 Cough; J34.89 Other specified disorders of nose and nasal sinuses; M79.10 Myalgia, unspecified site; J45.909 Unspecified asthma, uncomplicated; F12.10 Cannabis abuse, uncomplicated; Z88.8 Allergy status to other drugs, medicaments and biological substances
CPT/HCPCS: 99283

== ENCOUNTER 2019-10-21 17:52 | Emergency (ER) | payer SELFPAY ==
[2019-10-21] MEDS ORDERED: PREDNISONE 20 MG TABLET PO ONE (21:12)
[2019-10-21] MEDS ORDERED: IPRATROPIUM/ALBUTEROL 0.5-2.5 MG/3 ML AMPUL NEB ONE (21:12)
--- NOTE | 2019-10-21 21:13 | ER Document Report ---
ED Medical Screen (RME) - General Chief Complaint: Breathing Difficulty Stated Complaint: TROUBLE BREATHING Time Seen by Provider: 10/21/19 21:10 Mode of Arrival: Ambulatory Information source: Patient Notes: This 29-year-old male with history of asthma presents emergency department with complaints of difficulty breathing and diarrhea since yesterday. Did not receive the flu vaccine. Reports he is used his inhalers without relief of symptoms. Respiratory rate even unlabored no retractions wheezing throughout bilaterally A&P. I have greeted and performed a rapid initial assessment of this patient. A comprehensive ED assessment and evaluation of the patient, analysis of test results and completion of the medical decision making process will be conducted by additional ED providers. TRAVEL OUTSIDE OF THE [place] IN LAST 30 DAYS: No - Related Data Allergies/Adverse Reactions: aspirin Allergy (Verified 09/24/19 16:52) Past Medical History Pulmonary Medical History: Reports: Hx Asthma Renal/ Medical History: Denies: Hx Peritoneal Dialysis - Immunizations Immunizations up to date: Yes Hx Diphtheria, Pertussis, Tetanus Vaccination: Yes Physical Exam - Vital signs Vitals: Temp Pulse Resp BP Pulse Ox 98.9 F 81 16 114/83 97 10/21/19 18:11 10/21/19 18:11 10/21/19 18:11 10/21/19 18:11 10/21/19 18:11 Course - Vital Signs Vital signs: Temp Pulse Resp BP Pulse Ox 98.9 F 81 16 114/83 97 10/21/19 18:11 10/21/19 18:11 10/21/19 18:11 10/21/19 18:11 10/21/19 18:11
[2019-10-21] MEDS: ALBUTEROL SULFATE 0.083% NEB 2.5 MG/3 ML AMPUL NEB SCH ×2 (21:52→22:24)
[2019-10-21 21:55] LABS: A TYPE INFLUENZA AG NEGATIVE (NEGATIVE); B INFLUENZA AG NEGATIVE (NEGATIVE)
--- NOTE | 2019-10-21 23:55 | ER Document Report ---
HPI - HPI Time Seen by Provider: 10/21/19 21:10 Pain Level: 5 Notes: 29-year-old male patient with history of asthma presented to the emergency department with acute asthma exacerbation. Patient reports increased work of breathing and wheezing for the last 2 days. States tried using his rescue inhaler without relief. Patient speaking in full complete sentences. - REPRODUCTIVE Reproductive: DENIES: : Past Medical History - General Information source: Patient - Social History Smoking Status: Current Every Day Smoker Family History: Reviewed & Not Pertinent Patient has suicidal ideation: No Patient has homicidal ideation: No Pulmonary Medical History: Reports: Hx Asthma Renal/ Medical History: Denies: Hx Peritoneal Dialysis - Immunizations Immunizations up to date: Yes Hx Diphtheria, Pertussis, Tetanus Vaccination: Yes Vertical Provider Document - CONSTITUTIONAL Notes: PHYSICAL EXAMINATION: GENERAL: Well-appearing, well-nourished and in no acute distress. HEAD: Atraumatic, normocephalic. EYES: Pupils equal round extraocular movements intact, conjunctiva are normal. ENT: Nares patent NECK: Normal range of motion LUNGS: Mildly increased work of breathing on arrival, expiratory wheezes noted throughout. Musculoskeletal: Normal range of motion NEUROLOGICAL: Normal speech, normal gait. PSYCH: Normal mood, normal affect. SKIN: Warm, Dry, normal turgor, no rashes or lesions noted. - INFECTION CONTROL TRAVEL OUTSIDE OF THE [place] IN LAST 30 DAYS: No Course - Re-evaluation Re-evalutation: Laboratory 10/21/19 21:26 Influenza A (Rapid) NEGATIVE Influenza B (Rapid) NEGATIVE Patient's lungs are much more clear after breathing treatments administered in the emergency department. He still has scattered expiratory wheeze noted however he is stable for discharge home at this time. ED return precautions discussed, patient verbalized understanding and agreement with plan. - Vital Signs Vital signs: Temp Pulse Resp BP Pulse Ox 98.9 F 83 20 114/83 100 10/21/19 18:11 10/21/19 21:15 10/21/19 21:15 10/21/19 18:11 10/21/19 21:15 Discharge - Discharge Clinical Impression: Asthma Condition: Stable Disposition: HOME, SELF-CARE Additional Instructions: You were seen for an asthma exacerbation. Your symptoms improved with treatment here in the emergency department. However, it is very important that you return to the emergency department immediately if you began to have worsening difficulty breathing that does not respond to your normal home nebulizers. You are also being sent home on a five-day course of steroids that you should start taking tomorrow. Please also follow closely with your primary care physician. you should also return to emergency department if you develop fever greater than 101, persistent cough, persistent vomiting, pass out, or any other symptoms that are concerning to you. Prescriptions: Prednisone [Deltasone 20 mg Tablet] 3 tab PO DAILY 5 Days #15 tablet Forms: Return to Work
[2019-10-22 06:29] VITALS: BP 122/74
== END 2019-10-21 23:30 | disposition home or self-care (01) ==
LOC: ER 17:52
DX: J45.901 Unspecified asthma with (acute) exacerbation (principal); F17.200 Nicotine dependence, unspecified, uncomplicated
CPT/HCPCS: 94640 ×2; 99284; 87804; J7512; J7620